=== PATIENT | female | born 1970 | race Caucasian/White ===

== ENCOUNTER 2024-04-03 11:06 | Emergency (ER) | payer BC, SELFPAY ==
[2024-04-03 11:17] VITALS: BP 102/69
[2024-04-03 11:36] LABS: % Basophils 0.1 % (0-2); % Eosinophils 0.3 % (0-6); % Immature Granulocytes 0.6 % (0-0.5); % Lymphocytes 12.1 % (20.5-51.1); % Neutrophils 78.9 % (42.2-75.2); Absolute Eosinophils 0.1 10^3/uL (0-0.7); Absolute Immature Granulocytes 0.1 10^3/uL (0-0.05); Absolute Lymphocytes 1.7 10^3/uL (1.2-3.4); Absolute Monocytes 1.2 10^3/uL (0.1-0.6); Absolute Neutrophils 11.3 10^3/uL (1.4-6.5); Hematocrit 34.3 % (37.0-47.0); Hemoglobin 11.2 g/dL (12.0-16.0); Mean Corp Hgb Conc. 32.7 g/dL (33.0-37.0); Mean Corpuscular Hgb 30.3 pg (27.0-31.0); Mean Corpuscular Volume 92.7 fL (81.0-99.0); Mean Platelet Volume 9.3 fL (7.4-10.4); Nucleated Red Blood Cells % 0 %; Platelet Count 345 10^3/uL (130-400); Red Cell Dist. Width 12.2 % (11.5-14.5); White Blood Cell Count 14.4 10^3/uL (4.8-10.8)
[2024-04-03 11:44] VITALS: BMI 25.4
[2024-04-03 11:48] LABS: ALT (SGPT) 19 U/L (0-35); AST (SGOT) 17 U/L (14-36); Albumin 3.2 g/dl (3.5-5.0); Alkaline Phosphatase 81 U/L (38-126); Blood Urea Nitrogen 10 mg/dl (7-17); Carbon Dioxide 23 mmol/L (22-30); Chloride 106 mmol/L (98-107); Estimated Creatinine Clearance 87 ml/min; Glucose 108 mg/dl (70-99); Potassium 4.3 mmol/L (3.5-5.1); Sodium 135 mmol/L (135-145); Total Bilirubin 0.2 mg/dl (0.2-1.3); Total Protein 6.1 g/dl (6.3-8.2); Urine Albumin Negative (Neg - Trace); Urine Bilirubin Negative (Negative); Urine Character Clear (Clear); Urine Color Yellow; Urine Glucose Negative (Negative); Urine Ketone Negative (Negative); Urine Leukocyte 1+ (Negative); Urine Nitrite Negative (Negative); Urine Occult Blood Negative (Negative); Urine Specific Gravity 1.005 (<1.030); Urine Urobilinogen Negative (Neg - 1+); eGFR > 60.00
--- NOTE | 2024-04-03 12:07 | ED.GENMED ---
History of Present Illness
General
Chief Complaint: Flank Pain
Source: patient
Exam Limitations: none
Time Seen by Provider: 04/03/24 11:58
Nursing documentation reviewed up to this point in time: agreed with
Travel History
Have you had any contact with someone who has COVID-19?: No
Do you have any symptoms of coronavirus? Fever > 100 degrees, chills, cough, shortness of breath, sore throat, loss of taste or smell, muscle aches, or headache?: No
History of Present Illness
History of Present Illness:
Patient is a 51-year-old female who presents to the ER for evaluation. She started 2 weeks ago feeling very tired and noticed cloudy urine. Patient since then has developed subjective fevers over the weekend and reports she has had several
episodes where she could not control her urine. She felt the urge to urinate all walking to the bathroom had episodes of incontinence. Triage note reports enuresis patient denies not urinating she reports this is incontinence. She complains of
right-sided back pain which radiates into her right groin.
Past History
Past History
ED Past Medical History: None
ED Past Surgical History: None
Social History
Tobacco: Non-smoker
Drug: None
Review of Systems
Review of Systems
Allergies reviewed?: Yes
All Other Systems: ROS reviewed and negative except as documented in HPI and ROS
Constitutional: Reports fever, fatigue and chills
EENT: Reports no symptoms
Respiratory: Reports no symptoms
Cardiac: Reports no symptoms
ABD/GI: Reports no symptoms
: Reports flank pain, incontinence and other ('cloudy urine' )
Musculoskeletal: Reports no symptoms
Skin: Reports no symptoms
Psychiatric: Reports no symptoms
Phy Exam
General Physical Exam
General Presentation: no apparent distress
General age: appears stated age
General Skin: warm and dry
General Habitus: normal
General Mental: alert
Gastrointestinal Exam
Gastrointestinal Exam: non tender, soft and no cva tenderness
Neurological Exam
Neurological Exam: alert and oriented x3
Musculoskeletal Exam
Musculoskeletal Exam: full ROM and other ( no cva tenderness )
Skin Exam
Skin Exam: normal color and warm/dry
Psychiatric Exam
Psychiatric Exam: normal mood/affect
Course
Orders/Labs/Results
Orders:
Orders
04/03/24 11:23
Complete Blood Count/With Diff Urgent
Comprehensive Metabolic Panel Urgent
Urinalysis Reflex To Culture Urgent
Date Specimen was Collected: 04/03/24
Time Specimen was Collected: 11:22
Urine Microscopic Reflex Cult Urgent
Urine Culture Urgent
JOSE Source: U
Specimen Description:
Date Specimen was Collected: 04/03/24
Time Specimen was Collected: 11:22
04/03/24 12:08
CT Abd/pelvis W Iv Cont Urgent
Comment:
Reason For Exam: right flank pain /fever
04/03/24 12:09
0.9% Sodium Chloride 1000 ml [Nss] 1,000 ml IV BOLUS
04/03/24 13:42
CefTRIAXone [Rocephin] 1,000 mg IV NOW STA
Ondansetron Injectable [Zofran] 4 mg IV NOW STA
04/03/24 13:44
Sterile Water [Sterile Water For Injection] 10 ml .ROUTE .STK-MED ONE
04/03/24 13:53
Ketorolac [Toradol] 15 mg IV NOW STA
04/03/24 14:46
Vital Signs- Treatment ONCE
Frequency: Once
Abnormal Lab Results
04/03/24
11:23
WBC 14.4 H 10^3/uL
(4.8-10.8)
RBC 3.70 L 10^6/uL
(4.20-5.40)
Hgb 11.2 L g/dL
(12.0-16.0)
Hct 34.3 L %
(37.0-47.0)
MCHC 32.7 L g/dL
(33.0-37.0)
Abs Immat Gran (auto) 0.1 H 10^3/uL
(0-0.05)
Absolute Neuts (auto) 11.3 H 10^3/uL
(1.4-6.5)
Absolute Monos (auto) 1.2 H 10^3/uL
(0.1-0.6)
Immature Gran % 0.6 H %
(0-0.5)
Neutrophils % 78.9 H %
(42.2-75.2)
Lymphocytes % 12.1 L %
(20.5-51.1)
Glucose 108 H mg/dl
(70-99)
Total Protein 6.1 L g/dl
(6.3-8.2)
Albumin 3.2 L g/dl
(3.5-5.0)
Leukocyte Esterase Rfl 1+ A
(Negative)
Urine WBC (Reflex) 11-15 A /HPF
(0-5)
04/03/24 11:23
04/03/24 11:23
Vital Signs
Initial and Last Documented VS:
Initial Vital Signs
Temp Pulse Resp BP Pulse Ox
99.9 F 96 18 102/69 97
04/03/24 11:17 04/03/24 11:17 04/03/24 11:17 04/03/24 11:17 04/03/24 11:17
Last Documented Vital Signs
Temp Pulse Resp BP Pulse Ox
99.9 F 96 18 102/69 97
04/03/24 11:17 04/03/24 11:17 04/03/24 11:17 04/03/24 11:17 04/03/24 11:17
Campus Police Officer consulted with Physician
[employer]us [employer] Officer consulted with physician?: Yes (Barbara)
MDM/Problems Addressed
Differential Diagnosis Includes:
Not limited to pyelonephritis versus stone
MDM/Problems Addressed:
Patient is a 53-year-old female who complains of intermittent fatigue for the past 2 weeks cloudy urine several episodes of urgency with incontinence. Patient presents awake alert no acute distress she does feel nauseous. She has not vomited. She
has a mildly elevated white count of 14,000 with 11�15 white blood cells in her urine normal kidney function CAT findings consistent possible early pyelonephritis. Case reviewed ED physician will treat for Connor. Will give 1 dose of Rocephin here
and will DC on Cipro close outpatient follow-up. Patient stable no acute distress nontoxic looks well
*Radiology
Radiology exam reviewed: radiology read reviewed
*Pulse Oximetry
Patient hypoxic: no
*Critical Care Note
Total Time (30-74mins, 75-104mins- exclusive of procedures): Not Applicable
ED Attending Note
-
Portions of this chart may have been created with voice recognition software.� Occasional wrong word or��sound alike� substitutions may have occurred due to the inherent limitations of voice recognition software.
Discharge Plan
Departure
Patient Disposition: Home (Routine Discharge)
Date of Disposition: 04/03/24
Time of Disposition: 14:46
Patient with high blood pressure during this ER visit?: No
Condition: Fair
Covid-19: Not Applicable
Discharge Problem:
Pyelonephritis
Instructions: Flank Pain (DC)
Prescriptions:
New
ciprofloxacin HCl [Cipro] 500 mg tablet
500 mg PO BID Qty: 20 0RF
No Action
fluoxetine 20 mg Tablet
40 mg PO DAILY
loratadine 10 mg Tablet
10 mg PO DAILY
drospirenone-ethinyl estradiol
1 tab PO DAILY
multivitamin Tablet
1 tab PO DAILY
cetirizine [Zyrtec] 10 mg Tablet
10 mg PO QPM
trazodone 100 mg Tablet
100 mg PO QPM
montelukast 10 mg Tablet
10 mg PO QPM
fluvoxamine [Luvox] 50 mg Tablet
150 mg PO HS
azelastine 137 mcg (0.1 %) Aerosol,[place]
1 spray INTRANASAL BID
cyclosporine [Restasis] 0.05 % Dropperette
1 drp BOTH EYES Q12H
topiramate 50 mg Tablet
50 mg PO BID
Nurtec ODT 75 mg Tablet,Disintegrating
75 mg PO ONCE PRN (Reason: migraines)
Fennel Estonian
1 dose PO DAILY
Retina A Micro
1 dose topical QPM
Vitamin D3
1 cap PO DAILY
iron
1 tab PO DAILY
vitamin A27-oqzhx acid
1 tab PO DAILY
zinc
1 tab PO DAILY
Eltriptan
40 mg PO PRN PRN (Reason: migraines)
lamotrigine [Lamictal] 150 mg Tablet
150 mg PO HS
alprazolam 1 mg Tablet
1 mg PO BID
lamotrigine 100 mg Tablet
100 mg PO BID
Referrals:
Jessica Ricketts DO [Family Provider] -
Activity Restrictions/Additional Instructions:
Symptoms are consistent with a kidney infection as discussed. A prescription for antibiotics was sent to your pharmacy take as directed. Stable hydrated. Follow-up closely with your family doctor the next several days for reevaluation and return
if any worsening to include increased pain nausea vomiting fever chills
Interventions
Interventions:
*Risk Screen - Suicide Last Done: 04/03/24 11:21
*General Assessment Last Done: 04/03/24 11:21
*Neglect/Abuse Screening Last Done: 04/03/24 11:21
BB-Gigjea-Ritqnrjouo Assessment Last Done: 04/03/24 11:44
ED-Female Genitourinary Assessment Last Done: 04/03/24 11:44
Discharge Date and Time
Print Language: TAJIK
[2024-04-03 12:18] LABS: Urine Red Blood Cell 0-2 /HPF (0-2)
[2024-04-03] MEDS: NSS 1000 IV (12:20)
[2024-04-03] MEDS: ZOFRAN 4 MG IV (13:45)
[2024-04-03] MEDS: ROCEPHIN 1000 MG IV (13:45)
[2024-04-03] MEDS: TORADOL 15 MG IV (13:57)
[2024-04-03 15:01] VITALS: BP 105/53
== END 2024-04-03 15:06 | disposition home or self-care (01) ==
LOC: EMR 11:06
PROVIDERS: Emergency Medicine; EMERGENCY PHYSICIAN Emergency Medicine; FAMILY PHYSICIAN Family Medicine
DX: N10 Acute pyelonephritis (principal)
CPT/HCPCS: 99285; 96374; 96375 ×2; 96361; 74177; 80053; 81003; 81015; 85025; 87086; Q9967

== ENCOUNTER 2024-04-04 12:56 | Inpatient (IN) | payer BC, SELFPAY ==
[2024-04-04] VITALS (58 sets, daily range): BP systolic 72–153; BP diastolic 37–95; BMI 26.8; BMI 27.7
--- NOTE | 2024-04-04 08:13 | ED.GENMED ---
History of Present Illness
General
Chief Complaint: Urinary Symptoms
Source: patient
Exam Limitations: none
Time Seen by Provider: 04/04/24 08:00
Nursing documentation reviewed up to this point in time: agreed with
Travel History
Have you had any contact with someone who has COVID-19?: No
Do you have any symptoms of coronavirus? Fever > 100 degrees, chills, cough, shortness of breath, sore throat, loss of taste or smell, muscle aches, or headache?: No
History of Present Illness
History of Present Illness:
53-year-old female with a history of migraines, anxiety presents for persistent right-sided back pain, fever, nausea and vomiting since yesterday. Patient was seen here for urinary discomfort that started about 2 weeks ago gradually. She developed
right-sided back pain and a fever. Her white count was 14, her creatinine was normal, her CT abdomen pelvis showed signs of early right-sided pyelonephritis and her urine was infected. She was given a dose of Rocephin IV and sent home on Cipro.
She took a dose of Cipro last night and then again this morning. After this morning's Cipro she immediately vomited but she was able to keep the Cipro down. Patient had a fever with rigors at 4:30 AM. She took Tylenol 1 g at 5 AM. She has had
pain worsening in the right side of her back going slightly up and also down into her groin.
She has never had pyelonephritis previously. She denies any chest pain, shortness of breath, syncope, diarrhea
Patient's urine culture has not resulted yet
she also has a migraine currently similar to previous migraines. she says she took a dose of nurtec last night but needs another one
she uses it prn for when she has headaches
no red flags
no vision changes.
Past History
Past History
ED Past Medical History: None
ED Past Surgical History: None
Social History
Tobacco: Non-smoker
Drug: None
Review of Systems
Review of Systems
Allergies reviewed?: Yes
All Other Systems: Not applicable
Phy Exam
Physical Exam
Physical Exam:
GENERAL: Alert , in no apparent distress, nontoxic
HEAD: NCAT
ENT: o/p clr, mmm.
CARDIAC: Regular rate and rhythm . no edema
LUNGS: Clear breath sounds bilaterally, no acute respiratory distress, no wheezes/rales/rhonchi
ABDOMEN: Soft, without focal tenderness, no r/g, no cvat
b/l CVA tendernbess R>L
NEUROLOGICAL: Alert and orientedx 4, cn intact, no facial asymmetry, 5/5 strength in UE/LE, sensation intact, romberg neg, ambulates without assistance, neg pronator drift
SKIN: Warm and dry, skin intact.
MUSCULOSKELETAL: No edema, well perfused.
PSYCH: Normal and appropriate interaction.
Course
Orders/Labs/Results
Orders:
Orders
04/04/24 08:14
0.9% Sodium Chloride 1000 ml [Nss] 1,000 ml IV BOLUS
Ketorolac [Toradol] 15 mg IV NOW STA
04/04/24 08:49
Complete Blood Count/With Diff Urgent
Comprehensive Metabolic Panel Urgent
Lactic Acid Q4H
Comment: CANCEL 2nd LACTIC ACID IF 1st LACTIC ACID IS LESS THAN 2
Blood Culture Q30M
JOSE Source: Blood/Venous
Specimen Description:
Blood Culture Q30M
JOSE Source: Blood/Venous
Specimen Description:
04/04/24 09:20
Acetaminophen [Tylenol] 1,000 mg PO NOW STA
04/04/24 09:22
HYDROmorphone [Dilaudid] 0.5 mg IV NOW STA
04/04/24 09:35
CefTRIAXone [Rocephin] 1,000 mg IV NOW STA
04/04/24 11:33
Gentamicin Sulfate [Gentamicin] 130 mg 0.9% Sodium Chloride [Nss] 50 ml IV NOW
04/04/24 11:37
CefTRIAXone [Rocephin] 1,000 mg IV NOW STA
04/04/24 11:43
Piperacillin/Tazo 3.375 Gram [Zosyn] 3.375 gram in 50 ml IV NOW
04/04/24 12:21
0.9% Sodium Chloride 500 ml [Nss] 500 ml IV BOLUS
04/04/24 12:29
Lactic Acid Urgent
04/04/24 12:30
NORepinephrine 4 MG/250 ML [Levophed] 4 mg in 250 ml IV PER PROTOCOL
Initial dose in mcg/min, then titrate:: 2
Titrate to keep:: MAP > 65 mmHg
Titrate by mcg/min:: 1-2 mcg/min
Frequency of titrations (minutes):: 5
Maximum dose in ICU in mcg/min:: 30
Maximum dose in IMU in mcg/min:: 8
Maximum dose in IVU in mcg/min:: 4
Begin to taper infusion when:: Remained at goal for 4hrs
Taper by mcg/min:: 1-2 mcg/min
Frequency of taper (minutes) if patient maintains goal:: 30
Taper to off?: Yes
If infusion off & no longer maintaining goal:: Contact Provider
04/04/24 12:36
Admit/Transfer Patient As Directed
Co-Sign Provider:
Level of Care: Inpatient admission
Assign to:: IMU- Intermediate Care
Physician / Group: Carmen Barth
Diagnosis: septic shock, pyelonephritis
Reason for Hospitalization: septic shock, pyelonephritis
Expected length of stay greater than two midnights?: Yes
ELOS- Estimated Length of Stay in days: 3
I certify the patient meets the requirements for IP care: Yes
04/04/24 12:38
Code Status As Directed
Resuscitation Status: Full Code
Abnormal Lab Results
04/04/24
08:49
RBC 3.30 L 10^6/uL
(4.20-5.40)
Hgb 10.0 L g/dL
(12.0-16.0)
Hct 29.7 L %
(37.0-47.0)
Abs Immat Gran (auto) 0.1 H 10^3/uL
(0-0.05)
Absolute Neuts (auto) 9.2 H 10^3/uL
(1.4-6.5)
Absolute Lymphs (auto) 0.5 L 10^3/uL
(1.2-3.4)
Immature Gran % 1.1 H %
(0-0.5)
Neutrophils % 92.5 H %
(42.2-75.2)
Lymphocytes % 5.2 L %
(20.5-51.1)
Monocytes % 0.9 L %
(1.7-9.3)
Sodium 133 L mmol/L
(135-145)
Chloride 108 H mmol/L
(98-107)
Carbon Dioxide 18 L mmol/L
(22-30)
Glucose 109 H mg/dl
(70-99)
AST 91 H U/L
(14-36)
ALT 52 H U/L
(0-35)
Total Protein 5.3 L g/dl
(6.3-8.2)
Albumin 2.7 L g/dl
(3.5-5.0)
04/04/24 08:49
04/04/24 08:49
Vital Signs
Temp: 101.1 F
Initial and Last Documented VS:
Initial Vital Signs
Temp Pulse Resp BP Pulse Ox
100.5 F H 96 16 105/58 96
04/04/24 07:57 04/04/24 07:57 04/04/24 07:57 04/04/24 07:57 04/04/24 07:57
Last Documented Vital Signs
Temp Pulse Resp BP Pulse Ox
99.0 F 55 19 103/58 99
04/04/24 11:29 04/04/24 14:15 04/04/24 14:15 04/04/24 14:15 04/04/24 14:15
MDM/Problems Addressed
Differential Diagnosis Includes:
pyelonephritis, kidney stone, sepsis
MDM/Problems Addressed:
53 y/o F with recently diagnosed pyelo yesterday here with worsening/continued sypmtoms of fever, rigors, r sided back pain, nausea/vomiting
she received rocephin iv and 2 doses of oral cipro and is febrile here
bp usually 110s, and she is low 100s
no tachycardia
mild B/L cvat
neuro intact
anticipate admission
consider broadening abx
1115 - pt's bp downtrended to 70/50
received 2nd liter of fluids and case d/w ed attending and hospitalist regarding broadning abx, which we did to zosyn as well as after 2L (30/kg fluids) pt still hypotensive, awake and alert; started levophed
pt is still very well appearing
no hydro on CT yesterday, do not suspect new obstruction today, htus reimaging not performed
*Critical Care Note
Total Time (30-74mins, 75-104mins- exclusive of procedures): Not Applicable (45)
comment:
septic shock bp monitoring, fluids, reassessment, d/w physicians
ED Attending Note
-
Portions of this chart may have been created with voice recognition software.� Occasional wrong word or��sound alike� substitutions may have occurred due to the inherent limitations of voice recognition software.
Discharge Plan
Departure
Patient Disposition: Admit
Date of Disposition: 04/04/24
Time of Disposition: 09:35
Admit to: Med/Surg
Presentation/result/management discussed w/ accepting MD/DO: Hospitalist
Patient with high blood pressure during this ER visit?: No
Condition: Fair
Covid-19: Not Applicable
Discharge Problem:
Pyelonephritis
Interventions
Interventions:
*Risk Screen - Suicide Last Done: 04/04/24 08:34
*General Assessment Last Done: 04/04/24 08:34
*Neglect/Abuse Screening Last Done: 04/04/24 08:34
ED- Fall Risk Assessment Last Done: 04/04/24 08:34
*ED COVID-19 Vaccine History Last Done: 04/04/24 08:34
ED-Female Genitourinary Assessment Last Done: 04/04/24 08:34
[2024-04-04] MEDS: NSS 1000 IV ×3 (08:46→23:53)
[2024-04-04] MEDS: TORADOL 15 MG IV (08:46)
[2024-04-04 09:03] LABS: % Basophils 0.1 % (0-2); % Eosinophils 0.2 % (0-6); % Immature Granulocytes 1.1 % (0-0.5); % Lymphocytes 5.2 % (20.5-51.1); % Monocytes 0.9 % (1.7-9.3); % Neutrophils 92.5 % (42.2-75.2); Absolute Immature Granulocytes 0.1 10^3/uL (0-0.05); Absolute Lymphocytes 0.5 10^3/uL (1.2-3.4); Absolute Monocytes 0.1 10^3/uL (0.1-0.6); Absolute Neutrophils 9.2 10^3/uL (1.4-6.5); Hematocrit 29.7 % (37.0-47.0); Mean Corp Hgb Conc. 33.7 g/dL (33.0-37.0); Mean Corpuscular Hgb 30.3 pg (27.0-31.0); Mean Platelet Volume 9.2 fL (7.4-10.4); Nucleated Red Blood Cells % 0 %; Platelet Count 285 10^3/uL (130-400); Red Cell Dist. Width 12.4 % (11.5-14.5); White Blood Cell Count 9.9 10^3/uL (4.8-10.8)
[2024-04-04 09:34] LABS: Lactic Acid 1.3 mmol/L (0.7-2.0)
[2024-04-04 09:35] LABS: ALT (SGPT) 52 U/L (0-35); AST (SGOT) 91 U/L (14-36); Albumin 2.7 g/dl (3.5-5.0); Alkaline Phosphatase 120 U/L (38-126); Blood Urea Nitrogen 11 mg/dl (7-17); Calcium 8.5 mg/dl (8.4-10.2); Carbon Dioxide 18 mmol/L (22-30); Chloride 108 mmol/L (98-107); Estimated Creatinine Clearance 84 ml/min; Glucose 109 mg/dl (70-99); Potassium 3.6 mmol/L (3.5-5.1); Sodium 133 mmol/L (135-145); Total Bilirubin 0.3 mg/dl (0.2-1.3); Total Protein 5.3 g/dl (6.3-8.2); eGFR > 60.00
[2024-04-04] MEDS: ROCEPHIN 1000 MG IV (09:46)
[2024-04-04] MEDS: TYLENOL 1000 MG PO (09:47)
[2024-04-04] MEDS: DILAUDID 0.5 MG IV ×4 (09:47→23:52)
[2024-04-04] MEDS: ZOSYN 50 IV ×3 (12:11→23:41)
--- NOTE | 2024-04-04 12:12 | HPS.HSE ---
Family Physician
-
Family Physician: NOT KNOW UNKNOWN - PT DOES
Chief Complaint
-
flank pain and fever
History of Present Illness
Ms. Supriya Villa is a 53 yo woman with hx migraines, anxiety, ER visit one day ago where diagnosed with pyelo (s/p 1 dose IV Ceftriaxone and discharged on Cipro) represents with fever and back pain.
She states for 2 weeks prior to coming to ER she had fatigue and urinary urgency, several times couldn't make it to bathroom. She then developed intense rigors. She vomited after Cipro dose yesterday. Intermittent mild diarrhea. She did not
measure temperature at home.
Some chest discomfort associated with rigors. No rash. No LE swelling. States mildly lightheaded
Kept AM meds down this morning.
Medical History
Past Medical History
Past Medical History: Reports Other (migraines, anxiety)
Past Surgical History: Reports Other
Social History
Tobacco: Non-smoker
Alcohol: Occasional
Drug: None
Family History
Family History: Not pertinent
Allergies / Home Medications
Allergies reflects when Allergies were last updated in [employer].
Home Medications with original date entered in [employer]
Allergy/Medication List:
Allergies
Allergy/AdvReac Type Severity Reaction Status Date / Time
mold Allergy congestion Verified 04/04/24 07:56
No Known Drug Allergies Allergy NA Verified 04/04/24 07:56
environmental Allergy congestion Uncoded 04/04/24 07:56
wet wood Allergy congestion Uncoded 04/04/24 07:56
Home Medications
Neuriva 1 cap PO DAILY Supplement 04/04/24
Retina A Micro Cream 1 applic topical HS face 04/04/24
acetaminophen 500 mg tablet (Tylenol Extra Strength) 500 mg PO DAILYPRN PRN mild pain 04/04/24
acetylcysteine 600 mg capsule (NAC) 600 mg PO QPM Supplement 04/04/24
alprazolam 1 mg tablet 1 mg PO BID Mental Health/Anxiety 04/04/24
cetirizine 10 mg tablet 10 mg PO QPM Allergies 04/04/24
cholecalciferol (vitamin D3) 125 mcg (5,000 unit) tablet 125 mcg PO DAILY Supplement 04/04/24
ciprofloxacin HCl 500 mg tablet 500 mg PO BID Infection 04/04/24
cyclosporine 0.05 % eye drops in a dropperette (Restasis) 1 drp BOTH EYES Q12H Eye Condition 04/04/24
drospirenone 3 mg-ethinyl estradiol 0.03 mg tablet 1 tab PO DAILY Hormonal Agent 04/04/24
fluoxetine 40 mg capsule 40 mg PO DAILY Mental Health 04/04/24
iron 0.5 tab PO QPM Supplement 04/04/24
lamotrigine 100 mg tablet 100 mg PO DAILY Neurological Condition 04/04/24
magnesium 1 tab PO HS Supplement 04/04/24
naproxen sodium 220 mg tablet (Aleve) 220 mg PO DAILYPRN PRN mild pain 04/04/24
rimegepant 75 mg disintegrating tablet (Nurtec ODT) 75 mg PO DAILYPRN PRN migraines 04/04/24
therapeutic multivitamin 1 tab PO QPM Supplement 04/04/24
trazodone 100 mg tablet 100 mg PO HS Sleep 04/04/24
turmeric 400 mg capsule 400 mg PO QPM Supplement 04/04/24
vitamin T27-xzczt acid 1 tab PO DAILY Supplement 04/04/24
zinc 1 tab PO DAILYPRN PRN supplement 04/04/24
Review of Systems
-
History Source: Patient
A 12 point ROS was completed and negative except as noted: Yes
Physical Exam
Vital Signs
Vital Signs
Temp Pulse Resp BP Pulse Ox
99.0 F 96 16 82/42 95
04/04/24 11:29 04/04/24 07:57 04/04/24 07:57 04/04/24 11:00 04/04/24 11:15
Physical Exam
General: No Apparent Distress and Comfortable
HEENT: PERRLA
Respiratory: Clear; No Wheezes
GI: Other (tenderness right lower quadrant, no guarding or rebound )
Genito-urinary: Costovertebral angle tend (right)
Musculoskeletal: No Edema
Skin: Warm and Dry; No Rash
Neuro: AO x 3
Psych: Calm
Laboratory Results
-
04/04/24 08:49
04/04/24 08:49
Laboratory Results
Lactic Acid 1.3 mmol/L (0.7-2.0) 04/04/24 08:49
Total Bilirubin 0.3 mg/dl (0.2-1.3) 04/04/24 08:49
AST 91 U/L (14-36) H 04/04/24 08:49
ALT 52 U/L (0-35) H 04/04/24 08:49
Alkaline Phosphatase 120 U/L (38-126) 04/04/24 08:49
Data Reviewed
-
Diagnostic Radiology: Report Reviewed by me
Lab Data: Labs Reviewed by me
Impression/Plan
-
Ms. Supriya Villa is a 53 yo woman with hx migraines, anxiety, ER visit one day ago where diagnosed with pyelo (s/p 1 dose IV Ceftriaxone and discharged on Cipro) represents with fever and back pain.
Triage VS: T 100.5 up to 101.1, P 96, RR 16, BP 105/58, SpO2 96%
LABS: WBC 9.9 (was 14.4 yesterday); Hg 10.0, PLT 285, Na 133, K+ 3.6, CO2 18, Cr 0.7, Glucose 109, Lactate 1.3, AST 91, ALT 52,
urine culture pending from yesterday
blood cultures pending from today
ABDOMEN/PELVIS CT from 04/03/24
IMPRESSION:
1. Very mild perinephric stranding adjacent to the right kidney, with mild heterogeneous enhancement pattern. Findings may be related to early pyelonephritis. No hydronephrosis on either side.
2. Small fat-containing umbilical hernia without evidence of incarceration.
MAR: Toradol, Dilaudid, Ceftriaxone/Gent then Zosyn, tylenol
Septic Shock
Pyelonephritis
-she was given IV Ceftriaxone on 04/03 and discharged on Cipro with worsening presentation today. s/p 1.7L in ER with SBP 70's, starting Levophed. Given septic shock will broaden IV antibiotics to Zosyn
-admit to IMU
-IV Zosyn
-F/U cultures
-IVF
-toradol PRN moderate pain; dilaudid PRN severe pain
Hx Migraines
-THRESHING OPERATOR Triptan PRN
Anxiety
-THRESHING OPERATOR regimen:
Alprazolom 1mg PO BID
Fluoxetine 40mg PO QD
Lamotrigine 100mg PO QD
Trazodone 100mg PO qhs
DVT PPx lovenox subQ
FULL CODE
Total Critical Care Time 45 minutes. I was immediately available to the patient and staff. I personally examined, reviewed labs, diagnostic images/reports, interpretations, treatment plans, discussed patient care with other providers and family
or caregivers (if patient is unable to make decisions), entered orders as appropriate and documented the medical record.
[2024-04-04] MEDS: LEVOPHED 250 IV (12:32)
[2024-04-04] MEDS: NSS 500 IV (12:51)
[2024-04-04 12:57] LABS: Lactic Acid 0.7 mmol/L (0.7-2.0)
[2024-04-04] MEDS: FLUSH (NSS) 1 FLUSH IV (16:18)
[2024-04-04] MEDS: LOVENOX 40 MG SC (17:20)
[2024-04-04] MEDS: ZYRTEC 10 MG PO (17:20)
[2024-04-04] MEDS: XANAX 1 MG PO (18:17)
--- NOTE | 2024-04-04 19:31 | PTCARENOTE ---
Received patient from ED. Patient AAOX3. Levo drip infusing at 4mcg/15mls via left ac int. VS at admission 105/[phone]. Patient reports right flank pain rating 5/10. SB/SR on monitor. Discussed plan of care and oriented patient to room.
[2024-04-04] MEDS: TORADOL 10 MG IV (19:36)
[2024-04-04] MEDS: RESTASIS 0.05% OPHTHALMIC EMULSION 1 DROPS BOTH EYES (19:59)
[2024-04-04] MEDS: DESYREL 100 MG PO (20:56)
[2024-04-04] MEDS: TYLENOL 650 MG PO (21:40)
[2024-04-05] VITALS (50 sets, daily range): BP systolic 72–124; BP diastolic 48–81; PULSE 70–74
--- NOTE | 2024-04-05 00:52 | PTCARENOTE ---
levo at 3 to maintain map of 65- good urine output. . gets oob to bsc w./out dizziness-
--- NOTE | 2024-04-05 03:13 | DOWNTIME ---
There was a [employer] Client [employer] Downtime on 04/04/2024 from 0100 to 04/05/2024 at 0300. Downtime documentation of patient's care, including medication administrations, has been reconciled in the electronic record per guidelines. Refer to the
patient's paper chart under the miscellaneous tab to see printed paper medication records and downtime forms.
[2024-04-05 04:28] LABS: % Basophils 0.2 % (0-2); % Eosinophils 2.7 % (0-6); % Immature Granulocytes 0.7 % (0-0.5); % Lymphocytes 22.8 % (20.5-51.1); % Monocytes 7.6 % (1.7-9.3); Absolute Eosinophils 0.2 10^3/uL (0-0.7); Absolute Immature Granulocytes 0.1 10^3/uL (0-0.05); Absolute Monocytes 0.7 10^3/uL (0.1-0.6); Absolute Neutrophils 5.9 10^3/uL (1.4-6.5); Hematocrit 27.5 % (37.0-47.0); Mean Corp Hgb Conc. 32.7 g/dL (33.0-37.0); Mean Corpuscular Hgb 29.8 pg (27.0-31.0); Mean Corpuscular Volume 91.1 fL (81.0-99.0); Mean Platelet Volume 9.5 fL (7.4-10.4); Nucleated Red Blood Cells % 0 %; Platelet Count 310 10^3/uL (130-400); Red Blood Cell Count 3.02 10^6/uL (4.20-5.40); White Blood Cell Count 8.9 10^3/uL (4.8-10.8)
[2024-04-05 04:55] LABS: Blood Urea Nitrogen 7 mg/dl (7-17); Carbon Dioxide 19 mmol/L (22-30); Chloride 112 mmol/L (98-107); Estimated Creatinine Clearance 100 ml/min; Glucose 117 mg/dl (70-99); Magnesium 2.2 mg/dl (1.6-2.3); Potassium 4.1 mmol/L (3.5-5.1); Sodium 137 mmol/L (135-145); eGFR > 60.00
[2024-04-05] MEDS: ZOSYN 50 IV (05:17)
[2024-04-05 05:21] LABS: Urine Albumin Negative (Neg - Trace); Urine Bilirubin Negative (Negative); Urine Character Clear (Clear); Urine Color Yellow; Urine Glucose Negative (Negative); Urine Ketone Negative (Negative); Urine Leukocyte Trace (Negative); Urine Nitrite Negative (Negative); Urine Occult Blood Negative (Negative); Urine Urobilinogen Negative (Neg - 1+)
[2024-04-05] MEDS: XANAX 1 MG PO ×2 (05:21→18:02)
[2024-04-05 05:38] LABS: Urine Squamous Cell >30 /LPF (Few)
[2024-04-05 05:40] LABS: Urine Bacteria Few (Negative); Urine Red Blood Cell 0-2 /HPF (0-2); Urine White Cell 16-20 /HPF (0-5)
--- NOTE | 2024-04-05 06:24 | PTCARENOTE ---
levo turned off at 0615- map is 69- pt remains with flank pain, headaches myalgias- making clear yellow urine- no fevers entire shift
--- NOTE | 2024-04-05 07:36 | W.PN.HOSP.TC ---
Addendum entered and electronically signed by Carmen Barth MD 04/05/24 07:50:
anemia likely 2/2 dilution
no e/o bleeding
add on iron studies
Original Note:
Today's Communication/Plan
-
IV Zosyn
IVF
SubQ Tripan x 1 and monitor response
ID consult
Assessment / Plan
Assessment / Plan
Ms. Supriya Villa is a 53 yo woman with hx migraines, anxiety, ER visit one day ago where diagnosed with pyelo (s/p 1 dose IV Ceftriaxone and discharged on Cipro) represents with fever and back pain.
ABDOMEN/PELVIS CT from 04/03/24
IMPRESSION:
1. Very mild perinephric stranding adjacent to the right kidney, with mild heterogeneous enhancement pattern. Findings may be related to early pyelonephritis. No hydronephrosis on either side.
2. Small fat-containing umbilical hernia without evidence of incarceration.
Septic Shock
Pyelonephritis
-she was given IV Ceftriaxone on 04/03 and discharged on Cipro with worsening presentation day following. Required Levophed initiation in ER, now off.
-admitted to IMU
-IV Zosyn
-urine culture from initial ER visit with mixed contamination. blood cultures not obtained until 2nd ER visit (abx had been given)
-will consult ID. Concern for bacteremia without culture data
-IVF
Headache
Hx Migraines
-Patient states she sometimes takes Triptans at home but it's not with her. States dilaudid was helping BURTON
-will give sumatriptan subQ x 1 and monitor response
Anxiety
-[employer] regimen:
Alprazolom 1mg PO BID
Fluoxetine 40mg PO QD
Lamotrigine 100mg PO QD
Trazodone 100mg PO qhs
DVT PPx lovenox subQ
FULL CODE
Anticipated Discharge: 24 - 48 hours
Subjective/Interval History
-
Date of Service: April 05, 2024
flank pain improved today as well as urinary urgency
she describes headache. typical migraines are on right side; this headache started on right and extends to left. she describes vision changes with movement which is typical
Objective Data
-
Labs:
Laboratory Results
04/05/24
04:08
WBC 8.9
Hgb 9.0 L
Hct 27.5 L
Plt Count 310
Sodium 137
Potassium 4.1
Chloride 112 H
Carbon Dioxide 19 L
BUN 7
Creatinine 0.6
Glucose 117 H
Calcium 8.0 L
Vital Signs:
Vital Signs
Temp Pulse Resp BP Pulse Ox
97.6 F 53 15 83/59 95
04/05/24 03:30 04/05/24 07:00 04/05/24 07:00 04/05/24 07:00 04/05/24 07:00
I&O
04/04/24 04/05/24 04/06/24
06:59 06:59 06:59
Intake Total 2079
Output Total 1500 / 1500
Balance 580 / 580
Review of Systems
-
History Source: Patient
All other systems: Reviewed and negative
Physical Exam
-
General: No Apparent Distress
HEENT: PERRLA
Respiratory: Clear to Auscultation; Negative Wheezes
Cardiac: Regular Rhythm and S1/S2
GI: Soft
Genito-urinary: No Costovertebral Tender
Musculoskeletal: No Edema
Skin: Warm and Dry; Negative Rash
Neuro: AO x 3
Psych: Calm
Data Reviewed
-
Diagnostic Radiology: Report Reviewed by me
Labs: Labs Reviewed by me
[2024-04-05 08:06] LABS: Iron 38 ug/dl (37-170)
[2024-04-05] MEDS: IMITREX 6 MG SC (08:08)
[2024-04-05] MEDS: PROZAC 40 MG PO (08:10)
[2024-04-05] MEDS: RESTASIS 0.05% OPHTHALMIC EMULSION 1 DROPS BOTH EYES ×2 (08:10→21:35)
[2024-04-05] MEDS: LAMICTAL 100 MG PO (08:10)
[2024-04-05] MEDS: TYLENOL 650 MG PO (08:15)
[2024-04-05 08:16] LABS: Percent Saturation 16 % (20-50); Total Iron Binding Capacity 231 ug/dl (265-497)
[2024-04-05 09:25] LABS: Vitamin B12 > 1000 pg/ml (239-931)
--- NOTE | 2024-04-05 10:10 | CON.ID ---
Addendum entered and electronically signed by Oksana Lagunas MD 04/05/24 17:30:
no suprapubic or CVA tendnerness on exam
Original Note:
Consultation
-
Date/Time Consultation Requested: 04/05/24 7:46
Date/Time Consultation Performed: 04/05/24 10:17
Requesting Provider: Dr Barth
Performing Provider: Dr Lagunas
Reason for Consultation: rigors, suspected bacteremia
Chief Complaint / Past History
Chief Complaint
flank pain and fever
History of Present Illness
Ms Villa is a 53 year old female without significant past medical history who presented to the ER 04/03 for two weeks of fatigue, subjective fevers, R sided flank pain with radiation to the groin, cloudy urine, urinary urgency and incontinence, she
was diagnosed with pyleonephritis, given a dose of IV ceftiraxone and discharged with oral ciprofloxacin. After returning home she developed rigors and vomited after taking the cipro. Didnt take her temperature. Reports some new onset of diarrhea
and chest discomfort while having the rigors
Since representing Tmax is 101.0 - has been afebrile this am, bp has been intermittently mildly hypotensive now resolved, wbc 04/03 14 now 8.9, hgb 9, plt 310, L shift noted on arrival yesterday but resolved today, cr 0.7 , lactic acid initially 1.3,
co2 19, t bili 0.3, ast 91, alt 52, alk phos 120, UA 04/03 11-15 wbcs; UA 04/05 16-20 wbcs and >30 squamous cells, 04/03 CT a/p with IV contrast: mild perinephric stranding adjacent to the kidney possible early pyelo, no hydro; urine culture 04/03: 30K
mixed yulissa, repeat Urine culture 04/04: pending, blood cultures x2 in progress, currently on zosyn, not known to be colonized with MDROs at this institution. ID is consulted for assistance with management.
Past History
Additional Past Medical History:
migraines, anxiety
Past Surgical History: Other
Allergy History:
mold Allergy (Verified 04/04/24 07:56)
congestion
Medications Reviewed: Yes
Social History
Tobacco: Non-Smoker
Alcohol: Occasional
Drug: None
Family History
Family History: Not Pertinent
Review of Systems
Review of Systems
General: Fever and Chills
All systems: All other systems were reviewed and were negative
Vital Signs
Temp Pulse Resp BP Pulse Ox
98.0 F 63 25 121/70 99
04/05/24 07:55 04/05/24 09:00 04/05/24 09:00 04/05/24 09:00 04/05/24 09:00
Physical Exam
Physical Exam
Constitutional: No Acute Distress
Cardiovascular: Regular Rate and S1/S2; Negative Murmur or Rub
Pulmonary: Clear and Symmetric; Negative Wheezes, Rales or Rhonchi
Gastrointestinal: Soft, Non Tender, Non Distended and Normal Bowel Sounds
Skin: Warm and Dry; Negative Rash or Jaundice
Lab / Diagnostic Study Results
04/05/24 04:08
04/05/24 04:08
Abs Immat Gran (auto) 0.1 10^3/uL (0-0.05) H 04/05/24 04:08
Absolute Neuts (auto) 5.9 10^3/uL (1.4-6.5) 04/05/24 04:08
Absolute Lymphs (auto) 2.0 10^3/uL (1.2-3.4) 04/05/24 04:08
Absolute Monos (auto) 0.7 10^3/uL (0.1-0.6) H 04/05/24 04:08
Absolute Basos (auto) 0.0 10^3/uL (0-0.2) 04/05/24 04:08
Immature Gran % 0.7 % (0-0.5) H 04/05/24 04:08
Neutrophils % 66.0 % (42.2-75.2) 04/05/24 04:08
Lymphocytes % 22.8 % (20.5-51.1) 04/05/24 04:08
Monocytes % 7.6 % (1.7-9.3) 04/05/24 04:08
Eosinophils % 2.7 % (0-6) 04/05/24 04:08
Basophils % 0.2 % (0-2) 04/05/24 04:08
Lactic Acid 0.7 mmol/L (0.7-2.0) 04/04/24 12:29
Ur Squamous Epith Cells >30 /LPF (Few) 04/05/24 04:28
Microbiology Results
Micro:
04/04/24 08:49 Blood Culture - Preliminary
Blood/Venous No Growth in 24 hours- Final report to follow
04/04/24 08:49 Blood Culture - Preliminary
Blood/Venous No Growth in 24 hours- Final report to follow
04/05/24 04:28 Urine Culture - Pending
Urine
Assessment / Plan
Pyelonephritis
Fevers
Possible bacteremia - as evidenced by rigors - may have cleared
- blood cultures x2 in progress
- 04/04 urine culture in progress
- covid ag
- seems to be responding to zosyn, with improved fever curve, wbc count; note that UA had minimal pyuria
- dose of zosyn increased for possible esbl
- CT without obstruction
- follow clinically
--- NOTE | 2024-04-05 11:17 | PTCARENOTE ---
Assumed care of patient at beginning of this shift from previous RN with levo capped. MAP remains >65. She c/o h/a and requested dilaudid. Dr Barth in to see patient and ordered imitrex. Patient then stated she forgot to tell the Dr she also c/o
flank pain and requested dilaudid for that. Explained to patient that physician wanted to assess if imitrex would work for h/a and dilaudid may mask the effect. Patient agreeable to take tylenol for pain /10 with relief. Patient requested to walk
to BR; orth VS done prior to ambulation. BP 124/79 standing with MAP >70. Patient denied dizziness with ambulation; currently sitting in chair. Patient's 2 adult children remain at bedside. See worklist for full assessment and vital signs; see MAR
for med administration.
[2024-04-05] MEDS: ZOSYN 100 IV ×2 (11:53→18:05)
[2024-04-05] MEDS: TORADOL 15 MG IV ×2 (11:53→18:04)
[2024-04-05 12:16] LABS: COVID-19 Antigen Negative (Negative)
[2024-04-05] MEDS: NSS 1000 IV ×2 (13:04→21:35)
[2024-04-05] MEDS: ZYRTEC 10 MG PO (18:02)
[2024-04-05] MEDS: LOVENOX 40 MG SC (18:05)
[2024-04-05] MEDS: DESYREL 100 MG PO (21:36)
[2024-04-06] VITALS: BP 143/82
[2024-04-06] MEDS: ZOSYN 100 IV ×3 (00:45→11:59)
[2024-04-06] MEDS: DILAUDID 0.5 MG IV ×2 (00:52→20:40)
[2024-04-06] MEDS: TORADOL 15 MG IV (00:52)
--- NOTE | 2024-04-06 00:59 | W.PN.UPDATE ---
Update Note
Progress Note Update
Patient with c/o migraine and requesting Sumatriptan Succinate as she states dose early yesterday was effective. One time order placed for Sumatriptan Succinate 6mg SC now.
[2024-04-06] MEDS: IMITREX 6 MG SC (01:09)
[2024-04-06 02:00] VITALS: BP 125/84
--- NOTE | 2024-04-06 03:05 | PTCARENOTE ---
pt with headache that was relieved yesterday am with Imitrex- said it was the only thing that helped- pattern clerk ordered another dose- see mar- pt currently sleeping - family at bedside
[2024-04-06 04:00] VITALS: BP 129/77
[2024-04-06 05:58] LABS: % Basophils 0.3 % (0-2); % Eosinophils 3.3 % (0-6); % Immature Granulocytes 1.2 % (0-0.5); % Lymphocytes 27.1 % (20.5-51.1); % Monocytes 7.7 % (1.7-9.3); % Neutrophils 60.4 % (42.2-75.2); Absolute Eosinophils 0.2 10^3/uL (0-0.7); Absolute Immature Granulocytes 0.1 10^3/uL (0-0.05); Absolute Monocytes 0.6 10^3/uL (0.1-0.6); Absolute Neutrophils 4.4 10^3/uL (1.4-6.5); Hematocrit 28.6 % (37.0-47.0); Hemoglobin 9.2 g/dL (12.0-16.0); Mean Corp Hgb Conc. 32.2 g/dL (33.0-37.0); Mean Corpuscular Hgb 30.3 pg (27.0-31.0); Mean Corpuscular Volume 94.1 fL (81.0-99.0); Mean Platelet Volume 9.9 fL (7.4-10.4); Nucleated Red Blood Cells % 0 %; Platelet Count 300 10^3/uL (130-400); Red Blood Cell Count 3.04 10^6/uL (4.20-5.40); Red Cell Dist. Width 12.8 % (11.5-14.5); White Blood Cell Count 7.3 10^3/uL (4.8-10.8)
[2024-04-06 06:00] VITALS: BP 127/80
[2024-04-06 06:20] LABS: Blood Urea Nitrogen 8 mg/dl (7-17); Calcium 8.1 mg/dl (8.4-10.2); Carbon Dioxide 19 mmol/L (22-30); Chloride 114 mmol/L (98-107); Estimated Creatinine Clearance 100 ml/min; Glucose 83 mg/dl (70-99); Sodium 139 mmol/L (135-145); eGFR > 60.00
[2024-04-06] MEDS: XANAX 1 MG PO ×2 (08:21→17:35)
[2024-04-06] MEDS: PROZAC 40 MG PO (08:22)
[2024-04-06] MEDS: RESTASIS 0.05% OPHTHALMIC EMULSION 1 DROPS BOTH EYES ×2 (08:22→20:24)
[2024-04-06] MEDS: LAMICTAL 100 MG PO (08:22)
--- NOTE | 2024-04-06 08:31 | W.PN.HOSP.TC ---
Today's Communication/Plan
-
see plan
Assessment / Plan
Assessment / Plan
Ms. Supriya Villa is a 53 yo woman with hx migraines, anxiety, ER visit one day ago where diagnosed with pyelo (s/p 1 dose IV Ceftriaxone and discharged on Cipro) represents with fever and back pain.
ABDOMEN/PELVIS CT from 04/03/24
IMPRESSION:
1. Very mild perinephric stranding adjacent to the right kidney, with mild heterogeneous enhancement pattern. Findings may be related to early pyelonephritis. No hydronephrosis on either side.
2. Small fat-containing umbilical hernia without evidence of incarceration.
Septic Shock
Pyelonephritis
-she was given IV Ceftriaxone on 04/03 and discharged on Cipro with worsening presentation day following. Required Levophed initiation in ER, now off.
-admitted to IMU
-urine culture from initial ER visit with mixed contamination. blood cultures not obtained until 2nd ER visit (abx had been given)
-appreciate ID consult, follow up abx plan, patient knows she may need one more night in hospital
-IV Zosyn
-stop IVF
Headache
Hx Migraines
-Patient states she sometimes takes Triptans at home but it's not with her. States dilaudid was helping BURTON
-s/p sumatriptan x 2
-trial of compazine
Anxiety
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
Alprazolom 1mg PO BID
Fluoxetine 40mg PO QD
Lamotrigine 100mg PO QD
Trazodone 100mg PO qhs
DVT PPx lovenox subQ
FULL CODE
Anticipated Discharge: Within 24 hours
Subjective/Interval History
-
Date of Service: April 06, 2024
patient has intermittent migraines and headaches but had relief with triptan
mild right flank pain this morning after getting up
Objective Data
-
Labs:
Laboratory Results
04/06/24
05:41
WBC 7.3
Hgb 9.2 L
Hct 28.6 L
Plt Count 300
Sodium 139
Potassium 4.0
Chloride 114 H
Carbon Dioxide 19 L
BUN 8
Creatinine 0.6
Glucose 83
Calcium 8.1 L
Vital Signs:
Vital Signs
Temp Pulse Resp BP Pulse Ox
99.3 F 53 16 127/80 93
04/06/24 07:15 04/06/24 06:00 04/06/24 06:00 04/06/24 06:00 04/06/24 06:00
I&O
04/05/24 04/06/24 04/07/24
06:59 06:59 06:59
Intake Total 0 / 2080 1720 / 1720
Output Total 1500 / 1500
Balance 580 / 580 1720 / 1720
Review of Systems
-
History Source: Patient
All other systems: Reviewed and negative
Physical Exam
-
General: No Apparent Distress
HEENT: PERRLA
Respiratory: Clear to Auscultation; Negative Wheezes
Cardiac: Regular Rhythm and S1/S2
GI: Soft
Genito-urinary: No Costovertebral Tender
Musculoskeletal: No Edema
Skin: Warm and Dry; Negative Rash
Neuro: AO x 3
Psych: Calm
Data Reviewed
-
Diagnostic Radiology: Report Reviewed by me
Labs: Labs Reviewed by me
[2024-04-06] MEDS: COMPAZINE 5 MG IV ×2 (08:58→15:54)
--- NOTE | 2024-04-06 09:18 | CM ---
Patient with Dx Septic Shock, Pyelonephritis. Receiving IV Abx.
Met with patient yesterday who resides with her SO Saud in a 2 story house.
The patient has been independent in ADLs and ambulation.
She is active and works.
The patient has no DME, prior VN.
PCP -Aisha Ricketts
Pharmacy - [facility]
No CM d/c needs identified.
Plan home.
[2024-04-06] MEDS: NSS IV (09:20)
--- NOTE | 2024-04-06 13:48 | W.PN.ID1 ---
Date of Service
Date of Service: April 06, 2024
Today's Communication
- switch to bactrim 1 DS BID and metronidazole 500 mg BID x5 more days
- follow overnight, if she remains afebrile could consider discharge tomorrow or wednesday
Assessment / Plan
Possible Diverticulitis, unlikely pyelonephritis
Fevers - resolved
Possible bacteremia
- blood cultures x2 in progress no growth to date
- 04/04 urine culture negative
- covid ag neg
- switch to bactrim 1 DS BID and metronidazole 500 mg BID x5 more days
- follow overnight, if she remains afebrile could consider discharge tomorrow or wednesday
Chief Complaint
-: Fever and UTI
Subjective / Review of Systems
no further fevers
bp stable
no leukocytosis
urine culture finalized negative
still with some LLQ abdominal tenderness
no prior history of diverticulitis
Vital Signs / Physical Exam
Vital Signs
Vital Signs
Temp Pulse Resp BP Pulse Ox
98.6 F 65 20 127/80 95
04/06/24 11:30 04/06/24 12:00 04/06/24 12:00 04/06/24 06:00 04/06/24 12:00
Physical Exam
Constitutional: No Acute Distress
Cardiovascular: Regular Rate and S1/S2; Negative Murmur or Rub
Pulmonary: Clear and Symmetric; Negative Wheezes or Rales
Gastrointestinal: Soft, Non Tender, Non Distended and Normal Bowel Sounds
Skin: Warm and Dry; Negative Rash or Jaundice
Objective Data
Lab Data
Lab Results
04/06/24 05:41
04/06/24 05:41
Estimated Creat Clear 100 ml/min 04/06/24 05:41
Lactic Acid 0.7 mmol/L (0.7-2.0) 04/04/24 12:29
Total Bilirubin 0.3 mg/dl (0.2-1.3) 04/04/24 08:49
AST 91 U/L (14-36) H 04/04/24 08:49
ALT 52 U/L (0-35) H 04/04/24 08:49
Alkaline Phosphatase 120 U/L (38-126) 04/04/24 08:49
Most recent labs reviewed.
Micro Results:
04/04/24 08:49 Blood Culture - Preliminary
Blood/Venous No Growth in 48 hours- Final report to follow
04/04/24 08:49 Blood Culture - Preliminary
Blood/Venous No Growth in 48 hours- Final report to follow
04/05/24 04:28 Urine Culture - Final
Urine NO GROWTH
--- NOTE | 2024-04-06 14:27 | PTCARENOTE ---
Pt now for tx to 41o bed 1 report given pt aware
--- NOTE | 2024-04-06 15:08 | PTCARENOTE ---
pT transported to [facility] via stretcher and all [facility]
[2024-04-06 15:53] VITALS: BP 133/74
[2024-04-06] MEDS: LOVENOX 40 MG SC (17:35)
[2024-04-06] MEDS: ZYRTEC 10 MG PO (17:35)
[2024-04-06] MEDS: FLAGYL 500 MG PO (20:24)
[2024-04-06] MEDS: BACTRIM DS 800 MG/160 MG 1 TABLET PO (20:24)
[2024-04-06] MEDS: DESYREL 100 MG PO (20:25)
[2024-04-06 23:44] VITALS: BP 122/69
[2024-04-07] MEDS: COMPAZINE 5 MG IV (04:50)
[2024-04-07] MEDS: XANAX 1 MG PO (05:23)
[2024-04-07 07:35] VITALS: BP 121/62
[2024-04-07] MEDS: LAMICTAL 100 MG PO (08:09)
[2024-04-07] MEDS: RESTASIS 0.05% OPHTHALMIC EMULSION 1 DROPS BOTH EYES (08:09)
[2024-04-07] MEDS: FLAGYL 500 MG PO (08:09)
[2024-04-07] MEDS: PROZAC 40 MG PO (08:09)
[2024-04-07] MEDS: BACTRIM DS 800 MG/160 MG 1 TABLET PO (08:09)
[2024-04-07 08:15] VITALS: BP 121/62
--- NOTE | 2024-04-07 11:03 | W.PN.HOSP.TC ---
Today's Communication/Plan
-
OK for DC home today
Assessment / Plan
Assessment / Plan
Ms. Supriya Villa is a 53 yo woman with hx migraines, anxiety, ER visit one day ago where diagnosed with pyelo (s/p 1 dose IV Ceftriaxone and discharged on Cipro) represents with fever and back pain.
ABDOMEN/PELVIS CT from 04/03/24
IMPRESSION:
1. Very mild perinephric stranding adjacent to the right kidney, with mild heterogeneous enhancement pattern. Findings may be related to early pyelonephritis. No hydronephrosis on either side.
2. Small fat-containing umbilical hernia without evidence of incarceration.
Septic Shock
Pyelonephritis
-she was given IV Ceftriaxone on 04/03 and discharged on Cipro with worsening presentation day following. Required Levophed initiation in ER, now off.
-admitted to IMU, now transferred to tele
-urine culture from initial ER visit with mixed contamination. blood cultures not obtained until 2nd ER visit (abx had been given)
-appreciate ID consult
-transitioned from IV Zosyn to Bactrim/Flagyl
Headache
Hx Migraines
-Patient states she sometimes takes Triptans at home but it's not with her. States dilaudid was helping BURTON
-s/p sumatriptan x 2
-trial of compazine
-will resume control at home that helps with migraines
Anxiety
-MATE [employer] regimen:
Alprazolom 1mg PO BID
Fluoxetine 40mg PO QD
Lamotrigine 100mg PO QD
Trazodone 100mg PO qhs
DVT PPx lovenox subQ
FULL CODE
Anticipated Discharge: Today
Subjective/Interval History
-
Date of Service: April 07, 2024
feeling well and wants to go home
Objective Data
-
Vital Signs:
Vital Signs
Temp Pulse Resp BP Pulse Ox
98.1 F 56 20 121/62 93
04/07/24 07:35 04/07/24 07:35 04/07/24 07:35 04/07/24 07:35 04/07/24 07:35
I&O
04/06/24 04/07/24 04/08/24
06:59 06:59 06:59
Intake Total 1720 / 1720 1600 / 1600
Balance 1720 / 1720 1600 / 1600
Review of Systems
-
History Source: Patient
All other systems: Reviewed and negative
Physical Exam
-
General: No Apparent Distress
HEENT: PERRLA
Respiratory: Clear to Auscultation; Negative Wheezes
Cardiac: Regular Rhythm and S1/S2
GI: Soft
Genito-urinary: No Costovertebral Tender
Musculoskeletal: No Edema
Skin: Warm and Dry; Negative Rash
Neuro: AO x 3
Psych: Calm
Data Reviewed
-
Diagnostic Radiology: Report Reviewed by me
Labs: Labs Reviewed by me
--- NOTE | 2024-04-07 11:10 | W.DS.TRANS ---
DC Summary - Safety Admin Assistant
-
Discharge Instructions:
Discharge Diagnosis/Procedures pyelonephritis
Diet Regular
Activity As tolerated
Driving Restrictions As prior to admission
Bathing Restrictions None
Instructions:
Stand-Alone Forms:
Changes to Home Medications: Yes
Discharge Medications:
DC Medications w/original date entered in [facility]
Neuriva 1 cap PO DAILY Supplement 04/04/24
Retina A Micro Cream 1 applic topical HS face 04/04/24
acetaminophen 500 mg tablet (Tylenol Extra Strength) 500 mg PO DAILYPRN PRN mild pain 04/04/24
acetylcysteine 600 mg capsule (NAC) 600 mg PO QPM Supplement 04/04/24
alprazolam 1 mg tablet 1 mg PO BID@06,18 Mental Health/Anxiety 04/04/24
cetirizine 10 mg tablet 10 mg PO QPM Allergies 04/04/24
cholecalciferol (vitamin D3) 125 mcg (5,000 unit) tablet 125 mcg PO DAILY Supplement 04/04/24
cyclosporine 0.05 % eye drops in a dropperette (Restasis) 1 drp BOTH EYES Q12H Eye Condition 04/04/24
drospirenone 3 mg-ethinyl estradiol 0.03 mg tablet 1 tab PO DAILY Hormonal Agent 04/04/24
fluoxetine 40 mg capsule 40 mg PO DAILY Mental Health 04/04/24
iron 0.5 tab PO QPM Supplement 04/04/24
lamotrigine 100 mg tablet 100 mg PO DAILY Neurological Condition 04/04/24
magnesium 1 tab PO HS Supplement 04/04/24
naproxen sodium 220 mg tablet (Aleve) 220 mg PO DAILYPRN PRN mild pain 04/04/24
rimegepant 75 mg disintegrating tablet (Nurtec ODT) 75 mg PO DAILYPRN PRN migraines 04/04/24
therapeutic multivitamin 1 tab PO QPM Supplement 04/04/24
trazodone 100 mg tablet 100 mg PO HS Sleep 04/04/24
turmeric 400 mg capsule 400 mg PO QPM Supplement 04/04/24
vitamin E45-yaqho acid 1 tab PO DAILY Supplement 04/04/24
zinc 1 tab PO DAILYPRN PRN supplement 04/04/24
metronidazole 500 mg tablet 500 mg PO BID #10 tabs 04/07/24
sulfamethoxazole 800 mg-trimethoprim 160 mg tablet 1 tab PO BID #10 tabs 04/07/24
Home Medication Changes
addition of flagyl/bactrim
Pending Results: No
--- NOTE | 2024-04-07 11:10 | W.PN.ID1 ---
Date of Service
Date of Service: April 07, 2024
Today's Communication
- continue bactrim 1 DS BID and metronidazole 500 mg BID x4 more days
- doesnt drink etoh
- agree with dc
Assessment / Plan
Possible Diverticulitis, unlikely pyelonephritis
Fevers - resolved
Possible bacteremia
- blood cultures x2 in progress no growth to date
- 04/04 urine culture negative
- covid ag neg
- continue bactrim 1 DS BID and metronidazole 500 mg BID x4 more days
- doesnt drink etoh
- agree with dc
Chief Complaint
-: Fever
Subjective / Review of Systems
afebrile
bp stable
blood cultures remain no growth
no complaints
Vital Signs / Physical Exam
Vital Signs
Vital Signs
Temp Pulse Resp BP Pulse Ox
98.1 F 56 20 121/62 93
04/07/24 07:35 04/07/24 07:35 04/07/24 07:35 04/07/24 07:35 04/07/24 07:35
Physical Exam
Constitutional: No Acute Distress
Cardiovascular: Regular Rate
Pulmonary: Symmetric and Non Labored
Gastrointestinal: Soft, Non Tender and Non Distended
Skin: Dry; Negative Jaundice
Neurological: Awake
Objective Data
Lab Data
Lab Results
04/06/24 05:41
04/06/24 05:41
Estimated Creat Clear 100 ml/min 04/06/24 05:41
Lactic Acid 0.7 mmol/L (0.7-2.0) 04/04/24 12:29
Total Bilirubin 0.3 mg/dl (0.2-1.3) 04/04/24 08:49
AST 91 U/L (14-36) H 04/04/24 08:49
ALT 52 U/L (0-35) H 04/04/24 08:49
Alkaline Phosphatase 120 U/L (38-126) 04/04/24 08:49
Most recent labs reviewed.
Micro Results:
04/04/24 08:49 Blood Culture - Preliminary
Blood/Venous No Growth in 72 hours- Final report to follow
04/04/24 08:49 Blood Culture - Preliminary
Blood/Venous No Growth in 72 hours- Final report to follow
04/05/24 04:28 Urine Culture - Final
Urine NO GROWTH
Care Review
Plan reviewed with: Physician (Dr Barth - dc)
--- NOTE | 2024-04-07 11:47 | CM ---
met with patient who is stable for discharge home today.doctor writing a note of days she was hospitalized for her employer.family or friend to transport home.
--- NOTE | 2024-04-07 13:42 | W.DCSUMMARY ---
Discharge Summary
Discharge Data
Date of Admission: 04/04/24
Date of Discharge: 04/07/24
-
Pending Results: No
Hospital Course
Discharging Physician : Dr. Carmen Barth
Disposition : Home
Principal Discharge diagnosis : Acute Pyelonephritis
Chronic Discharge diagnosis :
Hospital Course :
Ms. Supriya Villa is a 53 yo woman with hx migraines, anxiety, ER visit one day ago where diagnosed with pyelo (s/p 1 dose IV Ceftriaxone and discharged on Cipro) represents with fever and back pain. Triage vitals T 100.5 then up to 101.
Initially normotensive then hypotensive despite IVF requiring Levophed. Labs with WBC 9.9 (14.4 day prior), lactate 1.3, creatinine 0.7. She was admitted to IMU on IV Zosyn. Culture from first ER visit failed to identify organism. Blood cultures
drawn on second ER visit after given antibiotics. ID was consulted to help guide antibiotic management. Patient's pressors weaned off first night of admission. She was maintained on Zosyn then per ID recs transitioned to Bactrim and Flagyl which
she will complete for 5 more days.
Hospital course c/b intermittent migraine; patient will resume her OCP at discharge.
Time spent on discharge was 32 minutes.
Important imaging findings :
Procedure findings :
Discharge Plan
-
Patient Disposition: Home (Routine Discharge)
Discharge Diagnosis/Procedures: pyelonephritis
Diet: Regular
Activity: As tolerated
Driving Restrictions: As prior to admission
Bathing Restrictions: None
Stand Alone Forms: Return to Work
Referrals:
UNKNOWN - PT DOES,NOT KNOW [Family Provider] - in less than 1 week
Additional Discharge Medication Instructions: Complete 5 more days of Flagyl and Bactrim.
Stop taking Cipro (antibiotic prescribed at first ER visit)
Prescriptions:
New
metronidazole 500 mg Tablet
500 mg PO BID Qty: 10 0RF
sulfamethoxazole-trimethoprim 800-160 mg Tablet
1 tab PO BID Qty: 10 0RF
Continued
fluoxetine 40 mg Capsule
40 mg PO DAILY
cetirizine 10 mg Tablet
10 mg PO QPM
alprazolam 1 mg Tablet
1 mg PO BID@06,18
therapeutic multivitamin Tablet
1 tab PO QPM
acetaminophen [Tylenol Extra Strength] 500 mg Tablet
500 mg PO DAILYPRN PRN (Reason: mild pain)
trazodone 100 mg Tablet
100 mg PO HS
naproxen sodium [Aleve] 220 mg Tablet
220 mg PO DAILYPRN PRN (Reason: mild pain)
drospirenone-ethinyl estradiol 3-0.03 mg tablet
1 tab PO DAILY
lamotrigine 100 mg Tablet
100 mg PO DAILY
cyclosporine [Restasis] 0.05 % dropperette
1 drp BOTH EYES Q12H
acetylcysteine [NAC] 600 mg Capsule
600 mg PO QPM
cholecalciferol (vitamin D3) 125 mcg (5,000 unit) Tablet
125 mcg PO DAILY
turmeric 400 mg Capsule
400 mg PO QPM
Nurtec ODT 75 mg tablet,disintegrating
75 mg PO DAILYPRN PRN (Reason: migraines)
Neuriva
1 cap PO DAILY
Retina A Micro Cream
1 applic topical HS
iron
0.5 tab PO QPM
magnesium
1 tab PO HS
vitamin Q43-kjhqn acid
1 tab PO DAILY
zinc
1 tab PO DAILYPRN PRN (Reason: supplement)
Discontinued
ciprofloxacin HCl 500 mg Tablet
500 mg PO BID
Patient Comments:
04/04/2024, filled on 04/03/2024 and instructed to take one tablet BID for 10 days.
Discharge Orders:
Discharge Patient (As Directed); Ordered 04/07/24
Ordered By: Carmen Barth
Discharge Date and Time
Print Language: SAMI
== END 2024-04-07 14:35 | disposition home or self-care (01) | DRG 871 ==
LOC: 4 EAST ACU 12:56
PROVIDERS: Physician Assistant; ADMITTING PHYSICIAN Student in an Organized Health Care Education/Training Program; CONSULT PHYSICIAN Student in an Organized Health Care Education/Training Program; EMERGENCY PHYSICIAN Emergency Medicine
DX: A41.9 Sepsis, unspecified organism (principal); R65.21 Severe sepsis with septic shock; K57.92 Diverticulitis of intestine, part unspecified, without perforation or abscess without bleeding; N12 Tubulo-interstitial nephritis, not specified as acute or chronic; F41.9 Anxiety disorder, unspecified; Z11.52 Encounter for screening for COVID-19
CPT/HCPCS: 80048; 80053; 81003; 81015; 82607; 82728; 83540; 83550; 83605; 83735; 85025; 87040; 87086; 87811; 96365; 96375; 99291

== ENCOUNTER → 2024-08-21 14:14 | Outpatient (REF) | payer BC, SELFPAY | LOC: HWWDC 14:14 | PROVIDERS: ATTENDING PHYSICIAN Obstetrics & Gynecology; FAMILY PHYSICIAN Family Medicine | DX: Z12.31 Encounter for screening mammogram for malignant neoplasm of breast (principal) | CPT/HCPCS: 77063; 77067 ==

== ENCOUNTER 2024-08-25 09:25 | Emergency (ER) | payer BC, SELFPAY ==
[2024-08-25 09:34] VITALS: BP 144/106
--- NOTE | 2024-08-25 10:01 | EDRN ---
Dr. Benavidez in room w/ pt.
--- NOTE | 2024-08-25 10:29 | EDRN ---
Dr. Benavidez cleared pt from suicide one to one. Pt moved from room #35 w/ one to one w/ D. Clinton PETE to room #39 at this time.
--- NOTE | 2024-08-25 10:31 | EDRN ---
Crisis was in speaking w/ pt and left as pt after move to room #39 had to void in BR.
--- NOTE | 2024-08-25 10:34 | ED.GENMED ---
History of Present Illness
General
Chief Complaint: Flank Pain
Source: patient
Exam Limitations: none
Time Seen by Provider: 08/25/24 09:54
History of Present Illness
History of Present Illness:
53-year-old female presents primarily complaining of right flank pain. Symptoms for the last few days. Has had some vague ongoing abdominal symptoms. Has seen GI recently and diagnosed with C. difficile colitis. First dose of vancomycin was this
morning. Denies urinary symptoms. No fever. Has had some joint pains for the last few weeks. Had small bug bites to the right arm and foot that she thought were mosquito bites. History of urosepsis.
Past History
Past History
ED Past Medical History: Psychiatric and Other (Pyelonephritis)
ED Past Surgical History: None, Orthopedic and Other (Pilonidal cyst/wisdom teeth/deviated septum)
Social History
Tobacco: Non-smoker
Drug: None
Phy Exam
Physical Exam
Physical Exam:
GENERAL: Alert and oriented in no apparent distress
EYE: Orbits normal.
NECK: Supple, no significant adenopathy.
ENT: Pharynx without erythema
CARDIAC: Regular rate and rhythm without any obvious murmurs.
LUNGS: Clear breath sounds,normal
ABDOMEN: Soft, minimal diffuse nonlocalizing tenderness. No rebound or guarding no mass or hernia. Very minimal right CVA tenderness
NEUROLOGICAL: Alert and oriented , grossly non-focal
SKIN: Warm and dry, no rash or lesion, no discoloration, skin intact.
MUSCULOSKELETAL: No edema,no deformity.Good color. No joint swelling no erythema. No effusions.
PSYCH: Normal and appropriate interaction.
Course
Orders/Labs/Results
Orders:
Orders
08/25/24 09:37
Crisis Consult Urgent
Reason for Consult: SI
08/25/24 10:14
CT Abd/pel Without Iv Or Oral Urgent
Comment:
Reason For Exam: Right flank pain
IV Insert/Care/Rem.- Treatment PRN
08/25/24 10:46
CRP [C-Reactive Protein] Urgent
Complete Blood Count/With Diff Urgent
Comprehensive Metabolic Panel Urgent
ESR [Erythrocyte Sed Rate] Urgent
Lipase Urgent
Lyme Progressive Urgent
Urinalysis Reflex To Culture Urgent
Date Specimen was Collected: 08/25/24
Time Specimen was Collected: 10:34
08/25/24 10:58
Vancomycin HCl [Firvanq] 125 mg PO NOW STA
Abnormal Lab Results
08/25/24
10:46
Glucose 69 L mg/dl
(70-99)
Calcium 10.3 H mg/dl
(8.4-10.2)
AST 48 H U/L
(14-36)
ALT 63 H U/L
(0-35)
C-Reactive Protein 11.00 H mg/L
(0.0-10.00)
Urine Ketones 2+ A
(Negative)
08/25/24 10:46
08/25/24 10:46
Vital Signs
Initial and Last Documented VS:
Initial Vital Signs
Temp Pulse Resp BP Pulse Ox
99.1 F 98 18 144/106 99
08/25/24 09:34 08/25/24 09:34 08/25/24 09:34 08/25/24 09:34 08/25/24 09:34
Last Documented Vital Signs
Temp Pulse Resp BP Pulse Ox
99.1 F 78 18 120/72 99
08/25/24 09:34 08/25/24 14:34 08/25/24 14:34 08/25/24 14:34 08/25/24 14:34
MDM/Problems Addressed
Differential Diagnosis Includes:
Patient with a history of pyelonephritis and right flank pain. Will evaluate urine and CT scan. Abdominal symptoms are likely related to her C. difficile colitis. As for her joint aches and myalgias we will do a ESR/CRP. Will also send a Lyme
titer. Nothing clinically to support an acute severe polyarticular arthritis. Patient does have a history of depression. She apparently was positive on the screen at triage. However she denies acute suicidal plan or intent. She would like to
talk to crisis and try to get really oriented with a psychiatrist. She has not been faithful with her psychiatric medications. At this time there is nothing that would indicate a psychiatric committal. She is not homicidal she is not acutely
suicidal and has no intent or plan. We will have crisis see her
*Radiology
Radiology exam reviewed: radiology read reviewed (High attenuation fluid in the colon. No other acute changes)
*Pulse Oximetry
Patient hypoxic: no
*Critical Care Note
Total Time (30-74mins, 75-104mins- exclusive of procedures): Not Applicable
Data Reviewed
Review of Other/Old Records Reveals: Labs, Records and Testing
Update Note
Update Note:
Patient is medically stable and nontoxic. No obvious explanation for her flank pain. Negative urinalysis. Normal white count. No obstructing stone. No pyelonephritis. There is some iodinated contrast like material in the bowel. Cannot totally
explain this. Suspect that it is something she drank or ate recently. Exam is nontoxic. Inflammatory markers are reasonable. Symptomatic treatment for her C. difficile colitis and follow-up. She also has follow-up for depression through [facility]
ED Attending Note
-
Portions of this chart may have been created with voice recognition software.� Occasional wrong word or��sound alike� substitutions may have occurred due to the inherent limitations of voice recognition software.
Discharge Plan
Departure
Patient Disposition: Home (Routine Discharge)
Date of Disposition: 08/25/24
Time of Disposition: 14:00
Patient with high blood pressure during this ER visit?: No
Discharge Problem:
Right flank pain, C. difficile colitis, Minimal transaminitis, Depression
Instructions: Flank Pain (DC), Depression, Adult ED, Clostridioides difficile ED
Prescriptions:
No Action
fluoxetine 40 mg Capsule
40 mg PO DAILY
cetirizine 10 mg Tablet
10 mg PO QPM
alprazolam 1 mg Tablet
1 mg PO BID@06,18
therapeutic multivitamin Tablet
1 tab PO QPM
acetaminophen [Tylenol Extra Strength] 500 mg Tablet
500 mg PO DAILYPRN PRN (Reason: mild pain)
trazodone 100 mg Tablet
100 mg PO HS
naproxen sodium [Aleve] 220 mg Tablet
220 mg PO DAILYPRN PRN (Reason: mild pain)
drospirenone-ethinyl estradiol 3-0.03 mg tablet
1 tab PO DAILY
lamotrigine 100 mg Tablet
100 mg PO DAILY
cyclosporine [Restasis] 0.05 % dropperette
1 drp BOTH EYES Q12H
acetylcysteine [NAC] 600 mg Capsule
600 mg PO QPM
cholecalciferol (vitamin D3) 125 mcg (5,000 unit) Tablet
125 mcg PO DAILY
turmeric 400 mg Capsule
400 mg PO QPM
Nurtec ODT 75 mg tablet,disintegrating
75 mg PO DAILYPRN PRN (Reason: migraines)
Neuriva
1 cap PO DAILY
Retina A Micro Cream
1 applic topical HS
iron
0.5 tab PO QPM
magnesium
1 tab PO HS
vitamin O86-bigam acid
1 tab PO DAILY
zinc
1 tab PO DAILYPRN PRN (Reason: supplement)
metronidazole 500 mg Tablet
500 mg PO BID Qty: 10 0RF
sulfamethoxazole-trimethoprim 800-160 mg Tablet
1 tab PO BID Qty: 10 0RF
Referrals:
Jessica Ricketts DO [Family Provider] - Follow up in 2-3 days
Activity Restrictions/Additional Instructions:
Continue your vancomycin
Follow-up closely with your primary physician
to consider repeating your liver enzymes in a few weeks
Return sooner with increased pain vomiting fever rash or any other concerning symptoms
Your Lyme titer should be back next week
Follow-up per [facility]
Interventions
Interventions:
*Risk Screen - Suicide Last Done: 08/25/24 09:34
*General Assessment Last Done: 08/25/24 09:34
*Neglect/Abuse Screening Last Done: 08/25/24 09:34
ED- Fall Risk Assessment Last Done: 08/25/24 10:50
*Nursing Disposition Last Done: 08/25/24 14:34
GM-Pajvcs-Aveqsxegmf Assessment Last Done: 08/25/24 10:50
ED-Female Genitourinary Assessment Last Done: 08/25/24 10:50
Discharge Date and Time
Print Language: GEORGIAN
[2024-08-25 10:50] VITALS: BP 116/70
[2024-08-25 10:55] LABS: % Basophils 0.2 % (0-2); % Eosinophils 1.7 % (0-6); % Immature Granulocytes 0.2 % (0-0.5); % Lymphocytes 30.6 % (20.5-51.1); % Monocytes 9.1 % (1.7-9.3); % Neutrophils 58.2 % (42.2-75.2); Absolute Eosinophils 0.1 10^3/uL (0-0.7); Absolute Lymphocytes 1.7 10^3/uL (1.2-3.4); Absolute Monocytes 0.5 10^3/uL (0.1-0.6); Absolute Neutrophils 3.1 10^3/uL (1.4-6.5); Hematocrit 38.8 % (37.0-47.0); Hemoglobin 13.4 g/dL (12.0-16.0); Mean Corp Hgb Conc. 34.5 g/dL (33.0-37.0); Mean Corpuscular Hgb 29.7 pg (27.0-31.0); Mean Platelet Volume 10.2 fL (7.4-10.4); Nucleated Red Blood Cells % 0 %; Platelet Count 232 10^3/uL (130-400); Red Blood Cell Count 4.51 10^6/uL (4.20-5.40); Red Cell Dist. Width 12.8 % (11.5-14.5); White Blood Cell Count 5.4 10^3/uL (4.8-10.8)
[2024-08-25 11:00] LABS: Urine Albumin Negative (Neg - Trace); Urine Bilirubin Negative (Negative); Urine Character Clear (Clear); Urine Color Yellow; Urine Glucose Negative (Negative); Urine Ketone 2+ (Negative); Urine Leukocyte Negative (Negative); Urine Nitrite Negative (Negative); Urine Occult Blood Negative (Negative); Urine Urobilinogen Negative (Neg - 1+)
[2024-08-25 11:12] LABS: ALT (SGPT) 63 U/L (0-35); AST (SGOT) 48 U/L (14-36); Albumin 4.5 g/dl (3.5-5.0); Alkaline Phosphatase 54 U/L (38-126); Blood Urea Nitrogen 10 mg/dl (7-17); Calcium 10.3 mg/dl (8.4-10.2); Carbon Dioxide 22 mmol/L (22-30); Chloride 102 mmol/L (98-107); Glucose 69 mg/dl (70-99); Lipase 262 U/L (23-300); Potassium 4.2 mmol/L (3.5-5.1); Sodium 140 mmol/L (135-145); Total Bilirubin 0.6 mg/dl (0.2-1.3); Total Protein 6.8 g/dl (6.3-8.2); eGFR > 60.00
[2024-08-25 11:27] LABS: Erythrocyte Sed Rate 16 mm/hour (0-20)
[2024-08-25] MEDS: FIRVANQ 125 MG PO (11:28)
[2024-08-25 12:18] VITALS: BP 122/74
[2024-08-25 14:34] VITALS: BP 120/72
[2024-08-28 15:14] LABS: Lyme Antibody Screen, EIA Negative (Negative)
== END 2024-08-25 15:41 | disposition home or self-care (01) ==
LOC: EMR 09:25
PROVIDERS: EMERGENCY PHYSICIAN Emergency Medicine; FAMILY PHYSICIAN Family Medicine
DX: A04.72 Enterocolitis due to Clostridium difficile, not specified as recurrent (principal); R10.9 Unspecified abdominal pain; R74.01 Elevation of levels of liver transaminase levels; F32.A Depression, unspecified; Z91.048 Other nonmedicinal substance allergy status
CPT/HCPCS: 99284; 74176; 80053; 81003; 83690; 85025; 85652; 86140; 86618

== ENCOUNTER → 2024-09-11 06:24 | Day surgery (SDC) | payer BC, SELFPAY | LOC: GI 06:24 | PROVIDERS: ATTENDING PHYSICIAN Internal Medicine Gastroenterology | DX: R19.4 Change in bowel habit (principal); K64.8 Other hemorrhoids | CPT/HCPCS: 45380; 88305 ==

== ENCOUNTER → 2024-10-02 11:07 | Outpatient (REF) | payer BC, SELFPAY | LOC: HWRAD 11:07 | PROVIDERS: ATTENDING PHYSICIAN Plastic Surgery; FAMILY PHYSICIAN Family Medicine | DX: M70.21 Olecranon bursitis, right elbow (principal) | CPT/HCPCS: 73080 ==

== ENCOUNTER → 2024-10-06 10:38 | Outpatient (REF) | payer BC, SELFPAY | LOC: EMG 10:38 | PROVIDERS: ATTENDING PHYSICIAN Plastic Surgery; FAMILY PHYSICIAN Family Medicine | DX: G56.00 Carpal tunnel syndrome, unspecified upper limb (principal) | CPT/HCPCS: 95886; 95909 ==

== ENCOUNTER → 2024-10-26 12:45 | Outpatient (REF) | payer BC, SELFPAY | LOC: EMG 12:45 | PROVIDERS: ATTENDING PHYSICIAN Orthopaedic Surgery Orthopaedic Trauma; FAMILY PHYSICIAN Family Medicine | DX: G56.02 Carpal tunnel syndrome, left upper limb (principal) | CPT/HCPCS: 95886; 95909 ==

== ENCOUNTER → 2025-08-10 14:50 | Outpatient (REF) | payer BC, SELFPAY | LOC: RAD 14:50 | PROVIDERS: ATTENDING PHYSICIAN Otolaryngology; FAMILY PHYSICIAN Family Medicine | DX: J32.0 Chronic maxillary sinusitis (principal) | CPT/HCPCS: 70220 ==

== ENCOUNTER → 2025-09-03 13:10 | Outpatient (REF) | payer BC, SELFPAY | LOC: HWWDC 13:10 | PROVIDERS: ATTENDING PHYSICIAN Obstetrics & Gynecology; FAMILY PHYSICIAN Family Medicine | DX: Z12.31 Encounter for screening mammogram for malignant neoplasm of breast (principal) | CPT/HCPCS: 77063; 77067 ==